=== PATIENT | male | born 1985 | race African-American/Black ===

== ENCOUNTER 2018-07-09 20:58 | Emergency (ER) | payer SELFPAY ==
[2018-07-09] MEDS ORDERED: METHYLPREDNISOLONE INJ 125 MG/2 ML SDV IV ONE (21:43)
--- NOTE | 2018-07-09 21:47 | ER Document Report ---
ED Allergic Reaction - General Chief Complaint: Allergic Reaction Stated Complaint: POSSIBLE ALLERGIC REACTION Time Seen by Provider: 07/09/18 21:36 Mode of Arrival: Medic Information source: Patient TRAVEL OUTSIDE OF THE [place] IN LAST 30 DAYS: No - HPI Patient complains to provider of: Rash, possible allergic reaction Onset: Just prior to arrival Notes: Patient is here with his at the bedside. He arrives via EMS. Patient states that he walked through his front door at home and all of a sudden started to feel like his face was on fire. He then broke out in hives to his face and upper chest felt like his left upper lip was somewhat swollen. They called EMS and he was given Benadryl and Zantac. States that he is feeling significantly better at this time. He denies any difficulty breathing or swallowing with this episode. No wheezing. No chest pain or shortness of breath. No abdominal pain. No nausea, vomiting, diarrhea. States that he did recently start using a new soap a few days ago, but he has not used since earlier this morning. He denies any new detergents, lotions, medications or food. He states that he takes no daily medications. He is not on YONG inhibitors. He states that he is feeling significantly better at this time and has no other further complaints at this time. - Related Data Allergies/Adverse Reactions: No Known Allergies Allergy (Unverified 07/09/18 21:21) Past Medical History - Social History Smoking Status: Unknown if Ever Smoked Family History: Reviewed & Not Pertinent Patient has suicidal ideation: No Patient has homicidal ideation: No Renal/ Medical History: Denies: Hx Peritoneal Dialysis Review of Systems - Review of Systems -: Yes All other systems reviewed and negative Physical Exam - Vital signs Vitals: Temp Pulse Resp BP Pulse Ox 98.3 F 74 19 132/87 H 100 07/09/18 20:58 07/09/18 20:58 07/09/18 20:58 07/09/18 20:58 07/09/18 20:58 - Notes Notes: GENERAL: alert, cooperative, nontoxic, no distress. HEAD: normocephalic, atraumatic EYES: conjunctiva pink without discharge, no external redness or swelling. EARS: no external swelling, no external redness NOSE: atraumatic, no external swelling MOUTH/THROAT: mucous membranes moist and pink, posterior pharynx without erythema, swelling, exudate. No trismus or drooling. Minimal swelling to the left aspect of the upper lip. No tongue swelling. Uvula midline. No trismus or drooling. Voice is normal. NECK: soft, supple, full range of motion, no meningismus. CHEST: no distress, lungs clear and equal throughout. No wheezing, rales, rhonchi. CARDIAC: regular rate and rhythm, no murmur, normal capillary refill, normal pulses. No peripheral edema noted. ABDOMEN: Soft, nontender. BACK: full range of motion, no CVA tenderness. EXTREMITIES: full range of motion of all extremities. No redness, no swelling. NEURO: alert and oriented x 3, no focal deficits, full range of motion of all extremities. PYSCH: appropriate mood, affect. Patient is cooperative. SKIN: pink, warm, dry, few scattered urticarial type lesions to the face and upper chest. Course - Re-evaluation Re-evalutation: 07/09/18 23:54 Patient has been observed here in the emergency department with no worsening reaction. Rash has resolved. Lip swelling has resolved. The patient states that he feels significantly better at this time. Patient did not appear to have an anaphylactic reaction. It appeared to have a serious allergic reaction to an unknown substance. Patient was medicated with antihistamines and steroids as well as Pepcid here in the emergency department. He will be discharged home with a prescription for prednisone and Pepcid with instructions to take Claritin or Benadryl. Follow-up with his primary care doctor at the next available appointment for allergy testing. Follow-up sooner or return to the emergency department for any worsening symptoms, high fever, difficulty breathing or swallowing, persistent vomiting, or for any further concerns. 07/09/18 23:55 The patient's emergency department workup and current diagnosis were explained to the patient and or family. Follow-up instructions were provided. Medications if prescribed were discussed. Instructions for when to return to the emergency department including specific worrisome symptoms were discussed with the patient and/or family. - Vital Signs Vital signs: Temp Pulse Resp BP Pulse Ox 98.3 F 74 19 132/87 H 100 07/09/18 20:58 07/09/18 20:58 07/09/18 20:58 07/09/18 20:58 07/09/18 20:58 Discharge - Discharge Clinical Impression: Allergic reaction Condition: Stable Disposition: HOME, SELF-CARE Instructions: Acute Allergic Reaction ([facility]) Additional Instructions: Take medication as prescribed. Take an [id number] Claritin or Benadryl as well. Drink plenty fluids. Follow-up with your doctor at the next available appointment for possible allergy testing. Follow-up sooner for worsening symptoms, difficulty breathing or swelling, persistent vomiting, or for any further concerns. Prescriptions: Famotidine [Pepcid 20 mg Tablet] 20 mg PO BID #30 tablet Prednisone [Deltasone 20 mg Tablet] 3 tab PO DAILY 5 Days tablet Forms: Elevated Blood Pressure, Smoking Cessation Education Referrals: [facility] [Outside] - Follow up as needed
[2018-07-10 00:04] VITALS: BP 139/86
== END 2018-07-10 00:05 | disposition home or self-care (01) ==
LOC: ER 20:58
DX: L50.0 Allergic urticaria (principal)
CPT/HCPCS: 99284; 96374; J2930